=== PATIENT | female | born 1955 | race Caucasian/White ===

== ENCOUNTER 2019-09-26 03:21 | Emergency (ER) | payer SELFPAY ==
[~2019-09-26] VITALS: Ht 152.4 cm; Wt 69.4 kg
[2019-09-26 03:25] VITALS: BP 152/95
--- NOTE | 2019-09-26 03:25 | NUR ---
PT WHEELCHAIRED TO BED #11
--- NOTE | 2019-09-26 03:39 | NUR ---
PATIENT PRESENTS TO ED WITH RLQ ABD PAIN X1 WEEK. +URINARY BURNING AND NAUSEA. PT REPORTS BEING SEEN IN HOSPITAL IN [place] AND GIVEN PAIN MEDICATION. pT [facility]. PT STATES RIN IN RIGHT FLANK. HX- DM NKA . DENIES V/D; SKIN IS PINK/WARM/DRY; AAOX4 WITH EVEN AND STEADY GAIT; LUNGS CLEAR BL; HR EVEN AND REGULAR; PT DENIES ANY FEVER, CP, SOB, OR COUGH AT THIS TIME; PATIENT STATES PAIN OF 6/10 AT THIS TIME; VSS; PATIENT POSITIONED FOR COMFORT; HOB ELEVATED; BEDRAILS UP X2; BED DOWN. ER MD MADE AWARE OF PT STATUS.
[2019-09-26] MEDS ORDERED: ONDANSETRON 4 MG ODT PO ONE (03:55)
[2019-09-26] MEDS ORDERED: KETOROLAC 60 MG/2 ML VIAL IM ONE (03:55)
[2019-09-26 04:10] VITALS: BP 152/95
--- NOTE | 2019-09-26 04:11 | NUR ---
Patient discharged with v/s stable. Written and verbal after care instructions given and explained. Patient alert, oriented and verbalized understanding of instructions. Ambulatory with steady gait. All questions addressed prior to discharge. ID band removed. Patient advised to follow up with PMD. Rx of MOTRIN, CIPRO, ZOFRAN AND PYRIDIUM given. Patient educated on indication of medication including possible reaction and side effects. Opportunity to ask questions provided and answered.
== END 2019-09-26 04:10 | disposition home or self-care (01) ==
LOC: MED 03:21
DX: N12 Tubulo-interstitial nephritis, not specified as acute or chronic (principal); R11.0 Nausea; E11.9 Type 2 diabetes mellitus without complications
CPT/HCPCS: 81002; 96372; 99283; J1885; Q0162